=== PATIENT | male | born 1945 | race Caucasian/White ===

== ENCOUNTER 2020-03-03 08:18 | Emergency (ER) | payer OTHER, MEDICAID, SELFPAY ==
[~2020-03-03] VITALS: Ht 167.6 cm; Wt 68.0 kg
[2020-03-03 08:18] VITALS: BP_SYST 148
--- NOTE | 2020-03-03 08:18 | NUR ---
Patient to ER bed 5 to gown for evaluation. Side rails up. Report given to BUCKY Monterroso.
--- NOTE | 2020-03-03 08:20 | NUR ---
Pt bib [facility] on 5150 hold for GD/DTO/DTS, pt is confused and disoriented. Reports being homeless, unable to give any medical history. V/S stable, pt is afebrile. Currently resting in bed, will continue to monitor.
[2020-03-03] MEDS ORDERED: NACL 0.9% 1,000 ML IV ONE (08:30)
--- NOTE | 2020-03-03 08:33 | NUR ---
ER Dr. Sher at bedside examining patient.
--- NOTE | 2020-03-03 08:40 | NUR ---
Nasal swab obtained to r/o Covid, sample sent to lab as per MD order. Pt tolerated well.
--- NOTE | 2020-03-03 09:00 | NUR ---
Multiple attempts to obtain IV access without success, to place using ultrasound machine.
--- NOTE | 2020-03-03 09:15 | NUR ---
Lab at bedside for blood draw.
[2020-03-03 09:59] LABS: BASOPHILS # (AUTO) 0.1 K/uL (0.0-0.2); BASOPHILS % (AUTO) 0.4 % (0.0-2.0); EOSINOPHILS # (AUTO) 0.8 K/uL (0.0-0.4); EOSINOPHILS % (AUTO) 6.3 % (0.0-4.0); HEMATOCRIT 44.3 % (36-54); HEMOGLOBIN 14.5 g/dL (14.0-18.0); LYMPHOCYTES # (AUTO) 3.6 K/uL (1.0-5.5); LYMPHOCYTES % (AUTO) 30.3 % (20.5-51.5); MEAN CORPUSCULAR HEMOGLOBIN 30 pg (27-31); MEAN CORPUSCULAR HGB CONC 33 % (32-36); MEAN CORPUSCULAR VOLUME 92 fL (79.0-98.0); MONOCYTES % (AUTO) 8.5 % (1.7-9.3); NEUTROPHILS # (AUTO) 6.5 K/uL (1.8-7.7); NEUTROPHILS % (AUTO) 54.5 % (40.0-70.0); RED BLOOD CELL COUNT(AUTO) 4.82 MIL/uL (4.2-6.2); RED CELL DISTRIBUTION WIDTH 13.8 % (9.0-15.0)
--- NOTE | 2020-03-03 10:11 | NUR ---
Radiology at bedside for CXR.
--- NOTE | 2020-03-03 10:15 | NUR ---
Urine sample obtained and sent to lab
[2020-03-03 10:16] LABS: ANION GAP 7 (5-15); CALCIUM 8.9 mg/dL (8.4-11.0); CHLORIDE 103 mmol/L (98-107); CREATININE 0.82 mg/dL (0.55-1.30); GLUCOSE 97 mg/dL (70-99); POTASSIUM 3.9 mmol/L (3.5-5.1); SODIUM SERUM 137 mmol/L (136-145); UREA NITROGEN, BLOOD 14 mg/dL (8-21)
[2020-03-03 10:21] LABS: ALANINE AMINOTRANSFERASE 18 U/L (12-78); ALBUMIN 3.5 g/dL (3.4-4.8); ASPARTATE AMINOTRANSFERASE 22 U/L (10-37); TOTAL BILIRUBIN 0.4 mg/dL (0.0-1.0)
[2020-03-03 10:27] LABS: BILIRUBIN,URINE NEGATIVE (NEGATIVE); BLOOD, URINE 1+ (NEGATIVE); CLARITY/URINE CLEAR (CLEAR); COLOR,URINE YELLOW (YELLOW); GLUCOSE,URINE NEGATIVE (NEGATIVE); KETONES,URINE NEGATIVE (NEGATIVE); LEUKOCYTE ESTERASE ,URINE 1+ (NEGATIVE); NITRITE, URINE NEGATIVE (NEGATIVE); PH,URINE 6.5 (5.0-8.0); PROTEIN URINE NEGATIVE (NEGATIVE)
[2020-03-03 10:32] LABS: ALCOHOL, BLOOD < 3 mg/dL (<10)
[2020-03-03 10:46] LABS: BARBITURATE, URINE NEGATIVE (NEG <=200); BENZODIAZEPINE, URINE NEGATIVE (NEG <=150); CANNABINOID, URINE POSITIVE (NEG <=50); COCAINE, URINE NEGATIVE (NEG <=150); METHAMPHETAMINES SCREEN,URINE NEGATIVE (NEG <=500); OPIATE, URINE NEGATIVE (NEG <=100); PHENCYCLIDINE SCREEN,URINE NEGATIVE (NEG <=25); UR TRICYCLIC ANTIDEPRESSANTS NEGATIVE (NEG <=300); URINE AMPHETAMINE NEGATIVE (NEG <=500); URINE METHADONE NEGATIVE (NEG <=200); URINE OXYCODONE SCREEN NEGATIVE (NEG <=100); URINE PROPOXYPHENE SCREEN NEGATIVE (NEG <=300)
[2020-03-03 10:54] LABS: PLATELET COUNT (AUTO) 101 K/uL (130-430)
[2020-03-03 11:08] LABS: BACTERIA,URINE FEW /HPF (None Seen)
--- NOTE | 2020-03-03 13:58 | NUR ---
Patient to be transferred to [facility]. Is being transferred due to higher level of care. Receiving facility has accepting physician and available space. ER physician has signed transfer form. Patient or responsible alliance party has agreed to transfer and signed form. Patient belongings inventoried and will be sent with patient. Copy of nursing notes, lab reports, EKG, Physicians Orders and X-rays to be sent with patient. Report called to Jay at receiving facility. Receiving physician is Dr. Blas . [facility] service has been called for transfer. ETA is 1400.
[2020-03-03 14:18] VITALS: BP_SYST 148
== END 2020-03-03 13:58 ==
LOC: SED 08:18
DX: Z13.30 Encounter for screening examination for mental health and behavioral disorders, unspecified (principal); F17.210 Nicotine dependence, cigarettes, uncomplicated; Z20.828 Contact with and (suspected) exposure to other viral communicable diseases; R94.31 Abnormal electrocardiogram [ECG] [EKG]
CPT/HCPCS: 36415; 71045; 80053; 80307; 81000; 82550; 84484; 85025; 87086; 87426; 93005; 99285; G0482